=== PATIENT | male | born 1970 | race Caucasian/White ===

== ENCOUNTER 2019-01-02 11:37 | Inpatient (IN) | payer OTHER ==
[~2019-01-02] VITALS: Ht 180.3 cm; Wt 105.2 kg
[~2019-01-02 11:37] MED LIST: Advil Migraine200 MG PO; HYDCHL12.5 PO; TRAM50 PO
--- NOTE | 2019-01-03 06:26 | NUR ---
History, Chart, Medications and Allergies reviewed before start of procedure. Patient confirms NPO status and agrees with scheduled surgery. Patient reports completing Chlorhexadine shower X2 prior to admission to hospital and nasal ointment x5 days.
--- NOTE | 2019-01-03 07:24 | NUR ---
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
--- NOTE | 2019-01-03 18:08 | NUR ---
SHIFT SUMMARY PT HAS DONE WELL POST OP. RATES PAIN 6-01/18 BUT WAS ABLE TO WORK WITH THERAPY, VOIDED, TOLERATING DIET, DRSG WNL.
[2019-01-04 04:45] LABS: BASOPHILS ABSOLUTE AUTO 0.02 K/mm3 (0.00-0.23); BASOPHILS PERCENT AUTO 0 % (0-2); EOSINOPHILS ABSOLUTE AUTO 0.17 K/mm3 (0.00-0.68); EOSINOPHILS PERCENT AUTO 2 % (0-6); Hematocrit 42.8 % (37.0-53.0); Hemoglobin 14.1 g/dL (13.5-17.5); IMMATURE GRAN ABSOLUTE AUTO 0.05 K/mm3 (0.00-0.10); IMMATURE GRAN PERCENT AUTO 1 % (0-1); LYMPHOCYTES ABSOLUTE AUTO 1.67 K/mm3 (0.84-5.20); LYMPHOCYTES PERCENT AUTO 16 % (21-46); MONOCYTES ABSOLUTE AUTO 0.94 K/mm3 (0.16-1.47); MONOCYTES PERCENT AUTO 9 % (4-13); Mean Corpuscular HGB Conc 32.9 g/dL (31.5-36.5); Mean Corpuscular Volume 91 fL (80-100); Mean Platelet Volume 10.3 fL (9.1-12.4); NEUTROPHILS ABSOLUTE AUTO 7.53 K/mm3 (1.96-9.15); NEUTROPHILS PERCENT AUTO 73 % (41-73); Platelet Count 211 K/mm3 (150-400); RDW Coefficient Variation 13.8 % (11.7-14.2); RDW Standard Deviation 46.6 fL (35.1-46.3); White Blood Cell Count 10.38 K/mm3 (4.00-11.30)
[2019-01-04 05:02] LABS: Anion Gap 6 mmol/L (6-16); Blood Urea Nitrogen 21 mg/dL (8-24); Bun/Creatinine Ratio 24.3 (12.0-20.0); CO2, Blood 28 mmol/L (21-32); Calcium, Blood 8.2 mg/dL (8.5-10.1); Chloride, Blood 105 mmol/L (98-108); Creatinine, Blood 0.86 mg/dL (0.60-1.20); Glomerular Filtration Rate >60 (60-); Glucose, Blood 109 mg/dL (70-99); Potassium, Blood 3.8 mmol/L (3.5-5.5); Sodium, Blood 139 mmol/L (136-145)
--- NOTE | 2019-01-04 05:18 | NUR ---
SHIFT SUMMARY: PT POD #1 FOR RIGHT TOTAL HIP. A&O X4. VS WNL. AQAUCEL DRESSING C/D/I WITH POLAR PACK IN PLACE. PAIN MANAGED WITH TORADOL, TYLENOL AND 10MG OXY. PT OUT OF BED SEVERAL TIMES TO BATHROOM USING FWW. VOIDING WELL. TRUONG PO. DENIES N/V. SALINE LOCKED. PLAN FOR POSSIBLE DISCHARGE TODAY.
[2019-01-04] MEDS ORDERED: Percocet 5-3251 EACH PO (09:49)
[2019-01-04] MEDS ORDERED: Aspirin EC81 MG PO (09:50)
--- NOTE | 2019-01-04 10:51 | NUR ---
DISCHARGE PAPERWORK COMPLETE, PT UNDERSTANDS PLAN OF CARE. PT DISCHARGED AT ABOUT 1030, ACCOMPANIED OFF UNIT BY THIS RN. PICKED UP IN CAR.
== END 2019-01-04 10:27 | disposition home or self-care (01) | DRG 470 ==
LOC: SURS 01-03 06:01 → PRE IP 01-03 07:30 → SURS 01-03 11:20
PROVIDERS: ADMIT Orthopaedic Surgery
PROC: 0SR90JA Replacement of Right Hip Joint with Synthetic Substitute, Uncemented, Open Approach (ICD-10-PCS; principal; 2019-01-03 07:30)
DX: M16.11 Unilateral primary osteoarthritis, right hip (principal); I10 Essential (primary) hypertension; Z88.5 Allergy status to narcotic agent; Z88.2 Allergy status to sulfonamides
CPT/HCPCS: 36415; 72170; 80048; 85025; 86850; 86900; 86901; 88300; 97110; 97116; 97162; 97530; C1776; J0171; J0690; J0735; J1170; J1885; J2250; J2704; J2795; J3370; J7120; Q0163

== ENCOUNTER 2020-07-09 18:12 | Emergency (ER) | payer OTHER ==
[~2020-07-09] VITALS: Ht 180.3 cm; Wt 97.5 kg
[~2020-07-09 18:12] MED LIST changes: +Aspirin EC81 MG PO; +Percocet 5-3251 EACH PO
[2020-07-09 18:47] LABS: BASOPHILS ABSOLUTE AUTO 0.07 K/mm3 (0.00-0.23); BASOPHILS PERCENT AUTO 1 % (0-2); EOSINOPHILS ABSOLUTE AUTO 0.09 K/mm3 (0.00-0.68); EOSINOPHILS PERCENT AUTO 1 % (0-6); Hematocrit 51.9 % (37.0-53.0); IMMATURE GRAN ABSOLUTE AUTO 0.12 K/mm3 (0.00-0.10); IMMATURE GRAN PERCENT AUTO 1 % (0-1); LYMPHOCYTES PERCENT AUTO 22 % (21-46); MONOCYTES ABSOLUTE AUTO 0.77 K/mm3 (0.16-1.47); MONOCYTES PERCENT AUTO 8 % (4-13); Mean Corpuscular HGB Conc 32.8 g/dL (31.5-36.5); Mean Corpuscular Volume 88 fL (80-100); Mean Platelet Volume 9.5 fL (9.1-12.4); NEUTROPHILS ABSOLUTE AUTO 6.55 K/mm3 (1.96-9.15); NEUTROPHILS PERCENT AUTO 67 % (41-73); Platelet Count 264 K/mm3 (150-400); RDW Coefficient Variation 14.9 % (11.7-14.2); RDW Standard Deviation 48.9 fL (35.1-46.3); Red Blood Cell Count 5.87 M/mm3 (4.30-5.90)
[2020-07-09 18:57] LABS: Alanine Aminotransfer (ALT/SGP 44 U/L (12-78); Alk Phos 68 U/L (50-136); Anion Gap 8 mmol/L (6-16); Aspartate Aminotrans (AST/SGOT 30 U/L (12-37); Bilirubin, Total 0.6 mg/dL (0.1-1.0); Blood Urea Nitrogen 24 mg/dL (8-24); CO2, Blood 25 mmol/L (21-32); Chloride, Blood 105 mmol/L (98-108); Creatinine, Blood 0.92 mg/dL (0.60-1.20); Globulin, Blood 3.9 g/dL (2.2-4.0); Glomerular Filtration Rate >60 (60-); Glucose, Blood 118 mg/dL (70-99); Potassium, Blood 4.2 mmol/L (3.5-5.5); Sodium, Blood 138 mmol/L (136-145); Total Protein, Blood 7.9 g/dL (6.4-8.2)
[2020-07-09] MEDS ORDERED: Prednisone50 MG PO (21:40)
[2020-07-09] MEDS ORDERED: Benadryl25 MG PO (21:40)
[2020-07-09] MEDS ORDERED: Pepcid20 MG PO (21:40)
== END 2020-07-09 21:53 | disposition home or self-care (01) ==
LOC: ER 18:12
PROVIDERS: Emergency Medicine
DX: T78.3XXA Angioneurotic edema, initial encounter (principal); I10 Essential (primary) hypertension; Z79.82 Long term (current) use of aspirin; Z88.5 Allergy status to narcotic agent; Z79.899 Other long term (current) drug therapy
CPT/HCPCS: 36415; 80053; 85025; 96374; 96375; 99283-25; J1200; J2930

== ENCOUNTER 2021-01-15 10:26 | Emergency (ER) | payer OTHER ==
[~2021-01-15] VITALS: Ht 180.3 cm; Wt 99.8 kg
[~2021-01-15 10:26] MED LIST changes: +Benadryl25 MG PO; +Pepcid20 MG PO; +Prednisone50 MG PO
[2021-01-15] MEDS ORDERED: METO25ER PO (11:24)
[2021-01-15] MEDS ORDERED: CYCL10 (11:24)
[2021-01-15] MEDS ORDERED: OXYC5 PO (11:58)
== END 2021-01-15 12:03 | disposition home or self-care (01) ==
LOC: ER 10:26
DX: M54.2 Cervicalgia (principal); Z79.82 Long term (current) use of aspirin; Z79.899 Other long term (current) drug therapy
CPT/HCPCS: 99283

== ENCOUNTER 2023-08-04 08:01 | Day surgery (SDC) | payer MEDICARE, OTHER ==
[~2023-08-04] VITALS: Ht 180.3 cm; Wt 112.8 kg
[~2023-08-04 08:01] MED LIST changes: +CYCL10; +METO25ER PO; +OXYC5 PO
--- NOTE | 2023-08-04 10:46 | NUR ---
08/04/23 1046 BLAINE CONNOLLY NAUSEA "PRETTY MUCH GONE". PAIN LITTLE BETTER, THROBBING SHARPT PAIN 01/18
--- NOTE | 2023-08-04 11:08 | NUR ---
08/04/23 1108 BLAINE CONNOLLYAUSEHarshal MED WAS GIVEN IN PACU. DENIES NAUSEA AT THIS TIME. POLAR PACK WAS PLACED ON KNEE
[2023-08-04 11:16] VITALS: BP 120/87
== END 2023-08-04 11:34 | disposition home or self-care (01) ==
LOC: ORSCSDS 08:01
PROVIDERS: Orthopaedic Surgery
PROC: 0SBC4ZZ Excision of Right Knee Joint, Percutaneous Endoscopic Approach (ICD-10-PCS; principal; 2023-08-04 09:15)
DX: S83.241A Other tear of medial meniscus, current injury, right knee, initial encounter (principal); S83.281A Other tear of lateral meniscus, current injury, right knee, initial encounter; M22.41 Chondromalacia patellae, right knee; I10 Essential (primary) hypertension; Z79.899 Other long term (current) drug therapy; Z68.34 Body mass index [BMI] 34.0-34.9, adult; Z87.891 Personal history of nicotine dependence
CPT/HCPCS: A9270; J0171; J1100; J1885; J2405; J2704; J3010; J7120